=== PATIENT | male | born 1965 | race Caucasian/White ===

== ENCOUNTER 2019-02-26 12:17 | Outpatient (CLI) | payer BC ==
[~2019-02-26 12:17] MED LIST: ASPI-1155 PO; GLIP10TA3 PO; LISI-217 PO; LISI40TA4 PO; METF-381 PO
== END 2019-02-26 21:08 | disposition home or self-care (01) ==
LOC: SUS 12:17
PROVIDERS: ATTEND Internal Medicine
DX: I70.90 Unspecified atherosclerosis (principal); I13.0 Hypertensive heart and chronic kidney disease with heart failure and stage 1 through stage 4 chronic kidney disease, or unspecified chronic kidney disease; I50.9 Heart failure, unspecified; N18.9 Chronic kidney disease, unspecified
CPT/HCPCS: 76770; 93880

== ENCOUNTER 2019-03-02 11:54 | Outpatient (CLI) | payer BC ==
[2019-03-02] MEDS ORDERED: IOHEXOL 100 ML IV ONE (12:26)
== END 2019-03-02 20:47 | disposition home or self-care (01) ==
LOC: SCT 11:54
PROVIDERS: ATTEND Internal Medicine
DX: I11.0 Hypertensive heart disease with heart failure (principal); I50.9 Heart failure, unspecified; I25.10 Atherosclerotic heart disease of native coronary artery without angina pectoris; E78.5 Hyperlipidemia, unspecified
CPT/HCPCS: 70491; Q9967